=== PATIENT | male | born 1960 | race Caucasian/White ===

== ENCOUNTER 2018-09-28 18:28 | Emergency (ER) | payer OTHER ==
[~2018-09-28] VITALS: Ht 175.3 cm; Wt 79.4 kg
[~2018-09-28 18:28] MED LIST: AMMONIUM LACTA225 GM TP; BISACODYL SUPP10 MG RECTAL; BOTOX100 UNIT IM; CALCIUM 500 +1 EAC5 PO; DIAZEPAM2.5 MG RC; FOLIC ACID 1 MG1 MG PO; HALOPERIDOL 2 MG2 M1 PO; IRON325 PO; LAMICTAL100 MG PO; LAMICTAL200 MG PO; LORAZEPAM 1 MG T1 M1 PO; METAMUCIL PAC1 UDPKT PO; MIRALAX17 GM PO; NAPROSYN500 MG PO; PRILOSEC20 MG PO; PROZAC20 MG PO; VITAMIN D-32000 UNIT PO; VITAMINC500 PO; [UNRECOGNIZED DRUG - OTHER] OT
[2018-09-28 18:44] LABS: URINE BILIRUBIN NEGATIVE (Negative); URINE BLOOD 2+ (Negative); URINE CLARITY CLEAR; URINE COLOR YELLOW; URINE GLUCOSE-RANDOM* NEGATIVE (Negative); URINE KETONES NEGATIVE (Negative); URINE NITRITE-REFLEX NEGATIVE (Negative); URINE PROTEIN (DIPSTICK) NEGATIVE (Negative); URINE UROBILINOGEN 0.2 E.U./dl (0.2-1.0)
[2018-09-28 18:45] LABS: URINE LEUKOCYTES-REFLEX 2+ (Negative)
[2018-09-28] MEDS ORDERED: BACTRIM DS TAB1 EACH PO (18:52)
[2018-09-28 19:02] LABS: BACTERIA-REFLEX None Seen /HPF (None Seen); CASTS None Seen /LPF (None Seen); CRYSTALS None Seen /LPF (None Seen); SQUAMOUS None Seen /LPF (0-3); URINE RBC 3-10 Few /HPF (0-2); URINE WBC-REFLEX >25 Many /HPF (0-5); WBC CLUMPS Few (None Seen)
[2018-09-28] MEDS ORDERED: PHENAZOPYRIDIN200 M2 PO (19:12)
[2018-09-28 19:30] VITALS: BP 128/67
== END 2018-09-28 19:15 | disposition home or self-care (01) ==
LOC: ER 18:28
PROVIDERS: Physician Assistant
DX: N39.0 Urinary tract infection, site not specified (principal); Z88.0 Allergy status to penicillin; Z88.1 Allergy status to other antibiotic agents

== ENCOUNTER → 2018-11-15 | Outpatient (CLI) | payer OTHER ==
[~2018-11-15] MED LIST changes: +BACTRIM DS TAB1 EACH PO; +PHENAZOPYRIDIN200 M2 PO
== END ==
LOC: CAT 10:36
DX: K44.9 Diaphragmatic hernia without obstruction or gangrene (principal); K59.00 Constipation, unspecified